=== PATIENT | male | born 1970 | race Caucasian/White ===

== ENCOUNTER → 2024-07-23 16:13 | Outpatient (REF) | payer OTHER, SELFPAY | LOC: DHSLP 16:13 | PROVIDERS: ATTENDING PHYSICIAN Family Medicine; FAMILY PHYSICIAN Physician Assistant | DX: G47.33 Obstructive sleep apnea (adult) (pediatric) (principal) | CPT/HCPCS: 95800 ==

== ENCOUNTER 2025-07-17 16:53 | Outpatient (RCR) | payer OTHER, SELFPAY | END 2025-07-17 23:59 | disposition home or self-care (01) | LOC: RPT 16:53 | PROVIDERS: ATTENDING PHYSICIAN Physical Medicine & Rehabilitation Sports Medicine; FAMILY PHYSICIAN Family Medicine | DX: M25.511 Pain in right shoulder (principal); M24.111 Other articular cartilage disorders, right shoulder; M19.011 Primary osteoarthritis, right shoulder; Z73.6 Limitation of activities due to disability; M62.81 Muscle weakness (generalized) | CPT/HCPCS: 97110; 97112; 97161 ==

== ENCOUNTER 2025-08-12 11:38 | Outpatient (RCR) | payer OTHER, SELFPAY | END 2025-08-19 23:59 | disposition home or self-care (01) | LOC: RPT 11:38 | PROVIDERS: ATTENDING PHYSICIAN Physical Medicine & Rehabilitation Sports Medicine; FAMILY PHYSICIAN Family Medicine | DX: M25.511 Pain in right shoulder (principal); M24.111 Other articular cartilage disorders, right shoulder; M19.011 Primary osteoarthritis, right shoulder; Z73.6 Limitation of activities due to disability; M62.81 Muscle weakness (generalized) | CPT/HCPCS: 97110; 97112; 97530 ==

== ENCOUNTER 2025-08-28 16:53 | Outpatient (RCR) | payer OTHER, SELFPAY | END 2025-08-28 23:59 | disposition home or self-care (01) | LOC: RPT 16:53 | PROVIDERS: ATTENDING PHYSICIAN Physical Medicine & Rehabilitation Sports Medicine; FAMILY PHYSICIAN Family Medicine | DX: M25.511 Pain in right shoulder (principal); M24.111 Other articular cartilage disorders, right shoulder; M19.011 Primary osteoarthritis, right shoulder; Z73.6 Limitation of activities due to disability; M62.81 Muscle weakness (generalized) | CPT/HCPCS: 97110; 97112; 97530 ==